=== PATIENT | male | born 1960 | race Caucasian/White ===

== ENCOUNTER 2020-06-07 14:15 | Outpatient (REF) | payer MEDICARE, SELFPAY ==
[2020-06-07 16:39] LABS: PSA,Total (Free>4and<10) 5.63 ng/mL (0.00-4.00)
[2020-06-11 11:37] LABS: Free Prostate Spec Ag 1.1 ng/mL; Percent Free Prostate Spec Ag 25 % (calc) (>25); Prostate Specific Ag Total 4.4 ng/mL (< OR = 4.0)
== END 2020-06-07 14:16 | disposition home or self-care (01) ==
LOC: HO.LAB 14:15
PROVIDERS: PCP Internal Medicine; Visit Provider Internal Medicine
DX: Z12.5 Encounter for screening for malignant neoplasm of prostate (principal)
CPT/HCPCS: 84153; 84154

== ENCOUNTER 2025-02-27 15:15 | Outpatient (AMB) | payer MEDICARE, SELFPAY ==
--- OUTSIDE RECORDS SUMMARY | 2024-11-16 12:15 | XMS_ITS ---
Author Organization [facility] Address [address], [place] [id number] Care Team Providers Care Truck Body Builder Apprentice Name Role Phone MIRNA HIGGINS Primary Care Provider [phone] LUCRETIA WOLFE Unavailable [phone] ALLERGIES No Known Allergies REASON FOR VISIT [...] 11/16/2024 Encounters Encounter Location Date Provider Diagnosis [facility] [address] [place] [address] 11/16/2024 LUCRETIA WOLFE Chronic pain syndrome G89.4 [...] to continue on pain management with methadone. 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 His methadone has been [...] to continue on pain management with methadone. 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 His methadone has been [...]
--- OUTSIDE RECORDS SUMMARY | 2024-11-20 04:30 | XMS_ITS ---
Author Organization [facility] Address [address] [place], [place] [id number] Care Team Providers Care Auto Garage Attendant Name Role Phone MIRNA HIGGINS Primary Care Provider LUCRETIA WOLFE [phone] REASON FOR VISIT canceled appt Encounters Encounter Location Date Provider Diagnosis [facility] [address] [place] [address] 11/20/2024 LUCRETIA WOLFE PLAN OF TREATMENT No Information
--- OUTSIDE RECORDS SUMMARY | 2024-11-24 11:45 | XMS_ITS ---
Author Organization [facility] Address [address], [place] [id number] Care Team Providers Care Engraver Machine Name Role Phone MIRNA HIGGINS Primary Care Provider [phone] LUCRETIA WOLFE [phone] REASON FOR VISIT 40 SFU 1 wk f/u Encounters Encounter Location Date Provider Diagnosis [facility] [address] [place] [facility] [place] [address] 11/24/2024 LUCRETIA WOLFE PLAN OF TREATMENT No Information
--- NOTE | 2025-02-27 15:21 | A.OFFPC_ITS ---
Vital Signs 02/27/25 15:27 Height 6 ft 3.2 in Weight 268 lb BMI 33.3 BP 154/83 H Respiration 16 Pulse 108 H Pulse Source Pulse Oximeter Temp 98.1 F Temp Source Temporal Artery Scan Pulse Oximetry (%) 95 Oxygen Delivery Method Room Air Intake Visit Reasons: Establish Care - see comments Home Manager Required: No Accompanied by: Self / Same As Patient Allergies No Known Allergies Allergy (Verified 02/27/25 15:22) Tobacco use date assessed: 02/27/25 Fall risk assessment: 1 Fall in past year Last assessed Fall Risk: 02/27/25 Dental Screening Dental Screen Date: 02/27/25 Did you have a dental visit in the last 12 months?: Yes Did you have a dental problem in the last 6 months where you did not have access to dental care?: No Was dental information given to patient?: Patient has dentist [facility] Medical History (Updated 03/02/25 @ 08:26 by Yonny Oviedo MD) Opioid use disorder Family History (Updated 02/27/25 @ 15:33 by SAMIA Wells) Father Leukemia Mother Smoker Social History (Updated 02/27/25 @ 15:23 by SAMIA Wells) Housing: House Alcohol intake: current Alcohol intake frequency: does not drink Patient Tobacco Use Status: Never used Tobacco service: No Current occupational status: retired Cognitive needs: No Hearing needs: No Vision needs: Yes (reading glasses) Questionnaire PHQ-9 Over the last 2 weeks, how often have you been bothered by any of the following problems? 1. Little interest or pleasure in doing things: not at all 2. Feeling down, depressed, or hopeless: not at all 3. Trouble falling or staying asleep, or sleeping too much: not at all 4. Feeling tired or having little energy: not at all 5. Poor appetite or overeating: not at all 6. Feeling bad about yourself - or that you are a failure or have let yourself or your family down: not at all 7. Trouble concentrating on things, such as reading the newspaper or watching television: not at all 8. Moving or speaking so slowly that other people could have noticed. Or the opposite - being so fidgety or restless that you have been moving around a lot more than usual: not at all 9. Thoughts that you would be better off or of hurting yourself in some way: not at all Total score: 0 Source: Developed by Drs. Palomo Alba, Raul Sol and colleagues, with an educational parisa from [employer]. Thrive Questionnaire Date Thrive assessed: 02/27/25 I am a: Patient What is your living situation today?: I have a steady place to live Within the past 12 months, did the food you bought not last and you didn't have the money to get more?: Never true Within the past 12 months, did you worry whether your food would run out before you got money to buy more?: Never true Do you have trouble paying for medicines?: No Do you have trouble getting transportation to medical appointments?: No Do you have trouble paying your heating and electricity bill?: No Do you have trouble taking care of your child, family member or friend?: No Do you have trouble with day-to-day activities such as bathing, preparing meals, shopping, managing finances, etc.?: No Are you currently unemployed and looking for a job?: No Are you interested in more education?: No Please select the resources that you would like help with: None THRIVE Score: 0 AUDIT C Alcohol Use Questionnaire (AUDIT-C) 1. How often do you have a drink containing alcohol?: Never 3. How often do you have six or more drinks on one occasion?: Never Total Score: 0 BELA-7 AMB Questionnaire BELA-7 Date BELA - 7 assessed: 02/27/25 Feeling nervous, anxious, or on edge: 0 = Not at all Not being able to stop or control worryin = Not at all Worrying too much about different things: 0 = Not at all Trouble relaxin = Not at all Being so restless that it is hard to sit still: 0 = Not at all Becoming easily annoyed or irritable: 0 = Not at all Feeling afraid as if something awful might happen: 0 = Not at all Total BELA-7 score (0-4 normal; 5-9 mild; 10-14 moderate; 15-21 severe): 0 Source: Developed by Francesca Aguillon Kurt Kroenke and colleagues, with an educational parisa from [employer]. Physical exam (Primary Care) Vital Signs: Last Vital Signs Temp 98.1 F 02/27/25 15:27 Pulse 108 H 02/27/25 15:27 Resp 16 02/27/25 15:27 BP 154/83 H 02/27/25 15:27 Pulse Ox 95 02/27/25 15:27 Oxygen Delivery Method Room Air 02/27/25 15:27 BMI result Body Mass Index 33.3 Tobacco/Smoking Status: Tobacco use Status Tobacco use date assessed 02/27/25 02/27/25 15:34 Patient Tobacco Use Status Never used Tobacco 02/27/25 15:34 PHQ-9: PHQ-9 Score PHQ-9: Total score 0 02/27/25 15:34 Thrive Assessment: Date of Thrive Assessment Date Thrive assessed 02/27/25 02/27/25 15:34 Coding Level of Care Code New Pt Level 4 (90952) Complex EM visit Add On G2211 Diagnoses Opioid use disorder F11.90 Assessment & Plan Assessment & Plan (1) Opioid use disorder: Code(s): F11.90 - Opioid use, unspecified, uncomplicated Category: Medical Plan: History of Present Illness - The patient is a 65-year-old male presenting with opioid dependence and pain management concerns. - Migraine: The patient has experienced migraines since age 11, initially diagnosed at [facility] in [place] without treatment options provided. - Chest pain: The patient reported experiencing severe chest pain at work, leading to hospitalization and an ICU stay where an inverted T wave was noted. - Back pain: The patient has had back pain since his 20s, worsening in his 40s, leading to methadone prescription for pain management. - Opioid dependence: The patient has been on methadone, initially at 60 mg/day, now reduced to 30 mg/day, and is concerned about managing pain without opioids. - The patient has a history of being prescribed Tylox and hydrocodone for pain management and has been advised to transition to Suboxone. 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 - Family status: The patient is responsible for caring for his 90-year-old father who has leukemia. - Functional status: The patient rarely goes out and is a perfectionist, which affects his social interactions. 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 Review of Systems - Neurological: Reports migraines since age 11. - Cardiovascular: Reports severe chest pain at work, denies current chest pain. - Musculoskeletal: Reports chronic back pain since his 20s, worsening in his 40s. Physical Exam General: Cooperative and healthy appearing Nutritional Appearance: Well nourished Orientation/consciousness: Patient oriented x3 Limitations: No limitations Head: Normal to inspection General: Appearance normal, both eyes and all related structures Neck: Normal visual inspection Chest: Normal palpation of entire chest wall Respiratory: Patient reports experiencing very bad chest pain at work, previously thought to be a heart attack. History of inverted T wave noted. ormal respiratory effort Neurology: Patient oriented x3. Reports history of migraines since age 11, with no treatment. Describes headaches as debilitating, impacting ability to work. Reports being a perfectionist and experiencing rumination and self-doubt. Results Plan 1. Opioid Dependence - The patient is advised to transition from methadone to Suboxone for opioid dependence management. - The Aleida method was discussed as a potential tapering strategy to avoid withdrawal symptoms. - Referral to a specialist familiar with the Aleida method was recommended for a gradual transition. Discussion Notes During the consultation, we discussed transitioning the patient from methadone to Suboxone to manage opioid dependence. The Aleida method was introduced as a tapering strategy to minimize withdrawal symptoms, and a referral to a specialist was recommended. The patient expressed concerns about withdrawal and was reassured that the transition would be managed carefully. Patient Instructions - Follow up with the referred specialist to discuss the Aleida method for transitioning to Suboxone. - Monitor for any withdrawal symptoms and report them to the healthcare provider. - Continue current medication regimen until the specialist appointment. Orders: Referrals Addiction Medicine Referral F11.90 - Opioid use, unspecified, uncomplicated
[2025-02-27 15:27] VITALS: BP 154/83; PULSE 108; RESP 16; TEMP 36.7; O2SAT 95; BMI 33.3
--- OUTSIDE RECORDS SUMMARY | 2025-02-27 16:10 | XMS_ITS | Patient Health Record ---
Author Organization [facility] Address [address], [place] [id number] Care Team Providers Care Landscape Architecture Teacher Name Role Phone MIRNA HIGGINS Primary Care Provider LUCRETIA WOLFE Unavailable [phone] ALLERGIES No Known Allergies REASON FOR REFERRAL No Information MEDICATIONS Medication SIG (Take, Route, Frequency, Duration) Notes Start Date End Date Status cloNIDine HCl 0.1 MG 1-2 tablet Orally q6h prn for 2 days 11/16/2024 Active diazePAM 10 MG 1 tablet as [...] MG 1 Orally Twice a day Active SOCIAL HISTORY Tobacco Use: Social History Observation Description Date Details (start date - stop date) Never Smoker NA - NA Sex Assigned At : Social History Observation Description Sex Assigned At Unknown Smoking Question Answer Notes Are you a: never smoker Section Notes: never smoked cigarettes never smoked cigarettes never smoked cigarettes PROBLEMS Problem Type ICD Code Onset Dates Problem Status W/U Status Risk SNOMED Code Notes Problem Chronic pain syndrome (G89.4) Active confirmed 156931368 Problem BMI 36.0-36.9,adult (Z68.36) Active confirmed 134859487 Problem High cholesterol (E78.00) Active confirmed 13656203 Problem BPH without urinary obstruction (N40.0) Active confirmed 214130146 Problem Migraine syndrome (G43.909) Active confirmed 59687246 VITAL SIGNS Blood pressure diastolic 80 mm Hg 11/16/2024 Height 73.25 in 11/16/2024 Blood pressure systolic 138 mm Hg 11/16/2024 Weight 282.6 lbs 11/16/2024 BMI 37.03 kg/m2 11/16/2024 Encounters Encounter Location Date Provider Diagnosis [address] [address] 06/12/2024 MIRNA HIGGINS [address] [address] 08/22/2024 MIRNA HIGGINS Elevated PSA R97.20 ; BPH without urinary obstruction N40.0 ; Chronic pain syndrome G89.4 ; Chronic depression F32.A ; BMI 36.0-36.9,adult Z68.36 ; High cholesterol E78.00 and Migraine syndrome G43.[address] [address] 08/22/2024 MIRNA HIGGINS [place] [phone] 08/23/2024 LUCRETIA WOLFE Chronic pain syndrom e G89.[address] [address] 11/16/2024 MIRNA HIGGINS [place] [phone] 11/16/2024 LUCRETIA WOLFE [place] [phone] 11/16/2024 LUCRETIA WOLFE Chronic pain syndrom e G89.[address] [address] 11/20/2024 LUCRETIA WOLFE [address] [address] 11/24/2024 LUCRETIA WOLFE ASSESSMENTS Encounter Date Diagnosis Assessment Notes Treatment Notes Treatment Clinical Notes Section Notes 08/22/2024 Elevated PSA (ICD-10 - R97.20) pt to obtain records for review 08/22/2024 BPH without urinary obstruction (ICD-10 - N40.0) good control 08/23/2024 Chronic pain syndrome (ICD-10 - G89.4) [...] is tenuous. He admits to taking illicit [place] opiates > 20 years ago and using [...] to his Suboxone induction appointment when scheduled. 11/16/2024 Chronic pain syndrome (ICD-10 - G89.4) [...] to continue on pain management with methadone. [employer] record was searched. His methadone has been cut from 50 mg daily to 30 mg for the last month. It is not completely clear to me what he is taking, but that was his prescription. He continues on diazepam, 30 mg/day but is no longer getting any prescriptions for amphetamines. Plan is an induction on buprenorphine from Vicodin/hydrocodone . He will have clonidine to help with withdrawal symptoms for the 36 hours prior to initial buprenorphine dose. He will bring his medications to his office visit where I will provide all instructions personally and we will proceed with induction. UDS is positive for methadone, THC, benzodiazepi jose. It is negative for the remainder of the 12 test panel. 08/22/2024 Chronic pain syndrome (ICD-10 - G89.4) pt aware that I do not prescribe long term care social worker pain med/benzodiazepines -pt will see Dr Wolfe 08/22/2024 Chronic depression (ICD-10 - F32.A) no acute sx; pt to get me a lsit of psychiatrists that he can see 08/22/2024 BMI 36.0-36.9,adult (ICD-10 - Z68.36) pt to exercise and modify diet to decrease weight 08/22/2024 High cholesterol (ICD-10 - E78.00) low fat/cholesterol diet reviewed 08/22/2024 Migraine syndrome (ICD-10 - G43.909) stable 08/23/2024 Other 50' F2F encount er for discussion, education, care plan, record and RE[employer] review PLAN OF TREATMENT No Information Insurance Providers Payer Name Payer Address Payer Phone Subscriber Number Group Number Insured Name Patient Relationship to Insured Coverage Start Date Coverage End Date [employer]IC[employer] [address] [facility] [place] [address] [phone] [id number] PRIYANKA ALLISON Self - patient is the insured [facility] [address] [place] [address] [phone] [id number] PRIYANKA ALLISON Self - patient is the insured MEDICAL (GENERAL) HISTORY Medical History History ICD Code osteoarthritis high cholesterol depression headaches/migraines chronic lower back pain-spinal stenosis/ DDD agoraphobia BPH elevated psa Surgical History Surgery Date(Month/Year) prostate bx
== END 2025-02-27 16:10 | disposition home or self-care (01) ==
LOC: HO.HMCSH 15:15
PROVIDERS: PCP Internal Medicine; Visit Provider Internal Medicine
DX: F11.90 Opioid use, unspecified, uncomplicated (principal)

== ENCOUNTER → 2025-02-27 15:15 | Outpatient (BNVA) | payer MEDICARE, SELFPAY | PROVIDERS: PCP Internal Medicine; Visit Provider Internal Medicine | DX: Z76.89 Persons encountering health services in other specified circumstances (principal); G43.909 Migraine, unspecified, not intractable, without status migrainosus; F11.90 Opioid use, unspecified, uncomplicated | CPT/HCPCS: 99202 ==

== ENCOUNTER 2025-03-19 13:55 | Outpatient (AMB) | payer MEDICARE, SELFPAY ==
--- OUTSIDE RECORDS SUMMARY | 2024-11-16 04:04 | XMS_ITS ---
Author Organization [facility] Address [address], [place] [phone] Care Team Providers Care Information Technology Specialist Name Role Phone MIRNA HIGGINS Primary Care Provider Encounters Encounter Location Date Provider Diagnosis [facility] [address] [place] [address] 11/16/2024 MIRNA HIGGINS PLAN OF TREATMENT No Information
--- OUTSIDE RECORDS SUMMARY | 2024-11-16 04:11 | XMS_ITS ---
Author Organization [facility] Address [address] [place], [place] [phone] Care Team Providers Care Health Advocate Name Role Phone MIRNA HIGGINS Primary Care Provider LUCRETIA WOLFE [phone] REASON FOR VISIT appt to discuss suboxone Encounters Encounter Location Date Provider Diagnosis [facility] [address] [place] [address] 11/16/2024 LUCRETIA WOLFE PLAN OF TREATMENT No Information
--- OUTSIDE RECORDS SUMMARY | 2024-11-16 12:15 | XMS_ITS ---
Author Organization [facility] Address [address], [place] [id number] Care Team Providers Care Tobacco Hanger Name Role Phone MIRNA HIGGINS Primary Care Provider [phone] LUCRETIA WOLFE Unavailable [phone] ALLERGIES No Known Allergies REASON FOR VISIT [...] 11/16/2024 Encounters Encounter Location Date Provider Diagnosis [facility] [address] [place] [address] 11/16/2024 LUCRETIA WOLFE Chronic pain syndrome G89.4 [...] to continue on pain management with methadone. FOREST RESOURCES PROFESSOR record was searched. His methadone has been [...] to continue on pain management with methadone. FOREST RESOURCES PROFESSOR record was searched. His methadone has been [...]
--- OUTSIDE RECORDS SUMMARY | 2024-11-20 04:30 | XMS_ITS ---
Author Organization [facility] Address [address] [place], [place] [id number] Care Team Providers Care Range Management Specialist Name Role Phone MIRNA HIGGINS Primary Care Provider [phone] LUCRETIA WOLFE [phone] REASON FOR VISIT canceled appt Encounters Encounter Location Date Provider Diagnosis [facility] [address] [place] [address] 11/20/2024 LUCRETIA WOLFE PLAN OF TREATMENT No Information
--- OUTSIDE RECORDS SUMMARY | 2024-11-24 11:45 | XMS_ITS ---
Author Organization [facility] Address [address] [place], [place] [id number] Care Team Providers Care Linux Network Systems Administrator Name Role Phone MIRNA HIGGINS Primary Care Provider LUCRETIA WOLFE [phone] REASON FOR VISIT 40 SFU 1 wk f/u Encounters Encounter Location Date Provider Diagnosis [facility] [address] [place] [facility] [place] [address] 11/24/2024 LUCRETIA WOLFE PLAN OF TREATMENT No Information
--- NOTE | 2025-03-19 14:09 | A.OFFVIS_ITS ---
Vital Signs 03/19/25 14:22 Height 6 ft 4 in Weight 274 lb BMI 33.3 Pulse 122 H Pulse Source Pulse Oximeter Pulse Oximetry (%) 99 Oxygen Delivery Method Room Air Intake Visit Reasons: MAT intake Allergies No Known Allergies Allergy (Verified 03/19/25 14:23) HPI Comments Details: Patient was informed and verbally consented to the use of an ambient scribe for clinic note documentation during this visit. Patient was informed and verbally consented to the use of an ambient scribe for clinic note documentation during this visit History of Present Illness The patient is a 65-year-old male presenting with a history of opioid use disorder. The patient has been taking narcotics since the age of 12, originally prescribed for migraines. Currently, he reports using 15 mg of methadone and 5 m g of Vicodin yesterday and has taken 5 mg of methadone in the morning and plans on another 5 mg at night along with 5 mg of Vicodin today. He expresses a desire to taper off these opioids, recognizing the challenge due to potential withdrawal symptoms and cravings. He acknowledges stress and inability to fulfill personal duties when attempting to reduce dosage. He states narcotics were mainly prescribed by Dr. Lema, and his last prescription pickup was on December 29, which included hydrocodone/acetaminophen 10/325, as well as diazepam. Despite past unsuccessful attempts to discontinue opioids, where he experienced withdrawal symptoms lasting 3-4 days, he has been managing these without inpatient detoxification. The patient denies intravenous drug use and has no history of being in rehabilitation or support groups such as AA or NA. The patient reports his social scenario as living with his father and having a support system through him. He denies any episodes of domestic violence and con firms he has no children. 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 He denies the use of tobacco and reports abstaining from alcohol for many years. His medical history includes benign prostatic hyperplasia treated with tamsulosin, hypercholesterolemia managed with simvastatin, and past diagnosis of major depressive disorder. Behavioral health review indicates no current mental health provider and refutal of a previous bipolar diagnosis due to the absence of madeleine. No self-harmful intentions, suicidal ideation, or homicidal thoughts have been reported. On social review, he denotes his main mode of transportation is a car, and he is residing at home without legal issues encountered, including no history of incarceration or parole. Review of Systems - General: Denies fever. - Neurological: Reports chronic headaches. - Psychiatric: Reports major depressive disorder; denies gambling or excessive behaviors. - Respiratory: Denies cough or difficulty breathing. - Cardiovascular: Denies chest pain. - Gastrointestinal: Denies abdominal pain. - Musculoskeletal: Reports chronic back pain and sciatica. - Integumentary: Denies skin issues. - Substance Use: Reports use of opioids, denies alcohol use for several years. Physical Exam - Vital Signs- Stable. - HEENT- Pupils normal in size. - Respiratory- Lungs clear. - Cardiovascular- Regular heart rate and rhythm. - Gastrointestinal- Abdomen soft, non-tender. - Musculoskeletal- Extremities not tender. - Neurological- Non-focal exam. - Skin- Clear. Results Plan Patient was informed and verbally consented to the use of an ambient scribe for clinic note documentation during this visit. 1. Opioid use, unspecified, uncomplicated F11.90 Opioid dependency is addressed with planned initiation of Suboxone 8/2 TID, focusing on withdrawal and pain reduction. Patient advised induction during mild withdrawal, monitored within the initial days post-dose tapering. Additional psychiatric and supportive counseling endorsement encourages holistic management. 2. Benign prostatic hyperplasia with lower urinary tract symptoms N40.1 Continue current medication regimen with tamsulosin as no emergent concerns presented. 3. Pure hypercholesterolemia, unspecified E78.00 Maintain simvastatin therapy. Routine evaluation suffices with currently stable parameters. 4. Major depressive disorder, single episode, unspecified F32.9 Engage psychiatric consultation for support during opioid transition, ensuring integrated care amid depressive disorders. 5. Other chronic pain G89.29 Anticipate Suboxone utility also encompassing chronic back pain management. No alternate analgesics were considered at this stage. Discussion Notes During our discussion, I introduced the therapeutic opportunity with Suboxone to alleviate opioid addiction and possibly manage chronic pain. Substantial details on its use, benefits, and requirement for a mild withdrawal state before initiation were described. I advocated obtaining a psychiatric evaluation concerning diazepam usage, recommending coordinated care endeavors in psychological support. Patient?s commitment to comprehending the intervention and supplementary educational resources via AI was acknowledged. Emphasizing truths about withdrawal severity and adherence to this management provides a realistic outlook for follow-up consideration. Medical Decision Making The principal decision revolved around addressing the ongoing rehman with opioid use disorder. Based on patient history and symptoms described, Suboxone emerges as a suitable analog, promoting multifaceted relief in ongoing opioid dependency and attendant chronic pain conditions. Current medications for BPH and hypercholesterolemia persist without recommended modifications. Psychiatry referrals were deemed necessary as a complete approach to addressing the significant presence of major depressive disorder in conjunction with narcotics discontinuation. Patient Instructions - Begin Suboxone treatment as per outlined plan in mild withdrawal. - Identify and contact a mental health professional for depression management. - Continue current BPH and hypercholesterolemia medication regime. - Return for follow-up when necessary or if side effects arise. - Seek immediate care if severe withdrawal or unexpected symptoms are experienced. [facility] Medical History Opioid use disorder Family History Father Leukemia Mother Smoker Social History Housing: House Alcohol intake: current Alcohol intake frequency: does not drink Patient Tobacco Use Status: Never used Tobacco service: No Current occupational status: retired Cognitive needs: No Hearing needs: No Vision needs: Yes (reading glasses) Review of Systems Const All systems reviewed & are unremarkable except as noted in HPI and below Physical Exam Vital Signs: Last Vital Signs Pulse 122 H 03/19/25 14:22 Pulse Ox 99 03/19/25 14:22 Oxygen Delivery Method Room Air 03/19/25 14:22 BMI result Body Mass Index 33.3 Const General: cooperative Eyes General: appearance normal, both eyes and all related structures Resp Effort & Inspection: normal respiratory effort Cardio Rate: regular rate GI Inspection: Yes normal to inspection Extrem General: Yes normal to inspection Assessment & Plan Assessment & Plan (1) Opioid use disorder: Comment: He is good candidate for Suboxone Code(s): F11.90 - Opioid use, unspecified, uncomplicated Category: Medical Plan Come in when ready and prescribe . 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 What is your current relationship status?: single Current PCP: Preet Date of last visit: this year Referral Source: PCP Substance Abuse History Substance Abuse History (includes route, frequency and quantity): Methadone (15 mg a day ), Other opioids (hydrocodone 5 mg a day) and Other (gabapentin didnt work) Age of first use: 12 Details: headaches as child Social History Domestic Violence concerns: none Children: no Do you have a support system?: father Current mode of transportation?: car Where are you currently residing?: home [place] [facility] Drug Use Have you ever shared needles?: No Have you ever belonged to a needle exchange program?: No Do you buy needles at a pharmacy?: No Have you ever overdosed?: No Have you ever been hospitalized for an overdose?: No Recovery History Have you had any periods of recovery?: No Have you ever had inpatient treatment for your substance abuse disorder?: No Have you been in an inpatient detoxification program?: No Have you been in an inpatient Rehab/Intermediate house?: No Have you been in an outpatient Methadone Maintenance program?: No (has been prescribed in past,still has and is taking) Have you been in an outpatient Suboxone Maintenance program?: No Have you been in an AA/NA support program?: No Have you had a Recovery Support Fuel Tank Sealer And Tester?: No Have you had Peer Support?: No Behavioral Health History Do you have a current provider? If so, who?: no diagnosis: Depression and anxiety History of other addictive behavior: none History of inpatient psychiatric hospitalization? If so, how many? Most Recent? Where?: none History of self harming thoughts?: No History of homicidal or suicidal intentions?: No Medical Conditions Endocarditis?: No Skin Infection: No Seizure related to withdrawal or overdose: No Head or brain injury: No Hepatitis A (if yes, have you been treated?): No Hepatitis B (if yes, have you been treated?): No Hepatitis C (if yes, have you been treated?): No HIV (if yes, have you been treated?): No TB (if yes, have you been treated?): No Do you have any chronic pain conditions?: yes,back pain Legal History History of incarceration: No Currently on parole or probation: No Court mandated programs: No Pending court cases: No DCF involvement: No
[2025-03-19 14:22] VITALS: PULSE 122; O2SAT 99; BMI 33.3
--- OUTSIDE RECORDS SUMMARY | 2025-03-19 19:18 | XMS_ITS | Patient Health Record ---
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 Name Role Phone MIRNA HIGGINS Primary Care Provider LUCRETIA WOLFE Unavailable [phone] ALLERGIES No Known Allergies REASON FOR REFERRAL [...] Problem Chronic pain syndrome (G89.4) Active confirmed 130602806 Problem BMI 36.0-36.9,adult (Z68.36) Active confirmed 244780623 Problem High cholesterol (E78.00) Active confirmed 02492355 Problem BPH without urinary obstruction (N40.0) Active confirmed 930724059 Problem Migraine syndrome (G43.909) Active confirmed 94493911 VITAL SIGNS Blood pressure diastolic 80 mm Hg 11/16/2024 Height 73.25 in 11/16/2024 Blood pressure systolic 138 mm Hg 11/16/2024 Weight 282.6 lbs 11/16/2024 BMI 37.03 kg/m2 11/16/2024 Encounters Encounter Location Date Provider Diagnosis [address] [address] 06/12/2024 MIRNA HIGGINS [address] [address] 08/22/2024 MIRNA HIGGINS Elevated PSA R97.20 ; BPH without urinary obstruction N40.0 ; Chronic pain syndrome G89.4 ; Chronic depression F32.A ; BMI 36.0-36.9,adult Z68.36 ; High cholesterol E78.00 and Migraine syndrome G43.[address] [address] 08/22/2024 MIRNA HIGGINS [place] [phone] 08/23/2024 LUCRETIA WOLFE Chronic pain syndrom e G89.[address] [address] 11/16/2024 MIRNA HIGGINS [place] [phone] 11/16/2024 LUCRETIA WOLFE [place] [phone] 11/16/2024 LUCRETIA WOLFE Chronic pain syndrom e G89.[address] [address] 11/20/2024 LUCRETIA WOLFE [address] [address] 11/24/2024 LUCRETIA WOLFE ASSESSMENTS Encounter Date Diagnosis [...] is tenuous. He admits to taking illicit Qatari opiates > 20 years ago and using [...] to continue on pain management with methadone. 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 His methadone has been [...] pt aware that I do not prescribe intermediate card tender pain med/benzodiazepines -pt will see Dr Wolfe [...] for discussion, education, care plan, record and SENIOR DESIGNER review PLAN OF TREATMENT No Information Insurance Providers Payer Name Payer Address Payer Phone Subscriber Number Group Number Insured Name Patient Relationship to Insured Coverage Start Date Coverage End Date [employer] [address] [place] [address] [phone] [id number] PRIYANKA ALLISON Self - patient is the insured [facility] [address] [place] [address] [phone] [id number] PRIYANKA ALLISON Self - patient is the insured MEDICAL (GENERAL) HISTORY Medical History History ICD Code osteoarthritis high cholesterol depression headaches/migraines chronic lower back pain-spinal stenosis/ DDD agoraphobia BPH elevated psa Surgical History Surgery Date(Month/Year) prostate bx
== END 2025-03-19 15:15 | disposition home or self-care (01) ==
LOC: HO.HCC 13:55
PROVIDERS: PCP Internal Medicine; Visit Provider Internal Medicine
DX: F11.90 Opioid use, unspecified, uncomplicated (principal)
CPT/HCPCS: 99204

== ENCOUNTER → 2025-03-19 13:55 | Outpatient (BNVA) | payer MEDICARE, SELFPAY | PROVIDERS: PCP Internal Medicine; Visit Provider Internal Medicine | DX: N40.1 Benign prostatic hyperplasia with lower urinary tract symptoms (principal); F11.90 Opioid use, unspecified, uncomplicated; E78.00 Pure hypercholesterolemia, unspecified; F32.9 Major depressive disorder, single episode, unspecified; G89.29 Other chronic pain | CPT/HCPCS: 99202 ==

== ENCOUNTER 2025-05-29 15:10 | Outpatient (AMB) | payer MEDICARE, SELFPAY ==
--- OUTSIDE RECORDS SUMMARY | 2024-06-12 06:23 | XMS_ITS ---
Author Organization [facility] Address [address], [place] [id number] Care Team Providers Care Electric Fork Operator Name Role Phone MIRNA HIGGINS Primary Care Provider REASON FOR VISIT scheduled NPT appt. Encounters Encounter Location Date Provider Diagnosis [facility] [address] [place] [address] 06/12/2024 MIRNA HIGGINS PLAN OF TREATMENT No Information
--- OUTSIDE RECORDS SUMMARY | 2024-08-22 05:15 | XMS_ITS ---
Author Organization [facility] Address [address], [place] [id number] Care Team Providers Care Piercing Mill Operator Name Role Phone MIRNA HIGGINS Primary Care Provider [phone] ALLERGIES No Known Allergies REASON FOR VISIT 28/NPT, no sx, exposure, testing MEDICATIONS Medication SIG (Take, Route, Frequency, Duration) Notes Start Date End Date Status HYDROcodone-Acetaminophen 10-325 MG 1 tablet as needed Orally twice a day Active diazePAM 10 MG 1 tablet as needed O rally Three times a day Active Tamsulosin HCl 0.4 MG 1 Orally Twice a day Active Naproxen 500 MG 1 tablet with food o r milk as needed Orally every 12 hrs Active Rosuvastatin Calcium 40 MG 1 tablet Oral ly Once a day Active Methadone HCl 10 MG 5 tablet Orally Once a day Active PROBLEMS Problem Type ICD Code Onset Dates Problem Status W/U Status Risk SNOMED Code Notes Problem BPH without urinary obstruction (N40.0) Active confirmed 775980090 Problem Chronic pain syndrome (G89.4) Active confirmed 535809354 Problem BMI 36.0-36.9,adult (Z68.36) Active confirmed 596917122 Problem High cholesterol (E78.00) Active confirmed 18826079 Problem Migraine syndrome (G43.909) Active confirmed 77406093 VITAL SIGNS Height 73.25 in 08/22/2024 Weight 275.2 lbs 08/22/2024 Blood pressure systolic 124 mm Hg 08/22/19 25 Blood pressure diastolic 70 mm Hg 025 BMI 36.06 kg/m2 08/22/2024 Encounters Encounter Location Date Provider Diagnosis [facility] [address] [place] [address] 08/22/2024 MIRNA RO Elevated PSA R97.20 ; BPH without urinary obstruction N40.0 ; Chronic pain syndrome G89.4 ; Chronic depression F32.A ; BMI 36.0-36.9,adult Z68.36 ; High cholesterol E78.00 and Migraine syndrome G43.909 ASSESSMENTS Encounter Date Diagnosis Assessment Notes Treatment Notes Treatment Clinical Notes Section Notes 08/22/2024 Elevated PSA (ICD-10 - R97.20) pt to obtain records for review 08/22/2024 BPH without urinary obstruction (ICD-10 - N40.0) good control 08/22/2024 Chronic pain syndrome (ICD-10 - G89.4) pt aware that I do not prescribe group home pain med/benzodiazepin es-pt will see Dr Maguire 08/22/2024 Chronic depression (ICD-10 - F32.A) no acute sx; pt to get me a lsit of psychiatrists that he can see 08/22/2024 BMI 36.0-36.9,adult (ICD-10 - Z68.36) pt to exercise and modify diet to decrease weight 08/22/2024 High cholesterol (ICD-10 - E78.00) low fat/cholesterol diet reviewed 08/22/2024 Migraine syndrome (ICD-10 - G43.909) stable PLAN OF TREATMENT Treatment Notes Assessment Notes Elevated PSA pt to obtain records for review BPH without urinary obstruction good con trol Chronic pain syndrome pt aware that 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 Pt used to see Dr Lema. Pt has been on pain medication regimen x 40 years for chronic back pain/MCCALL. Pt is intersted in seeing a pain warhead maintenance specialist to try suboxone. Pt has no SI/HI/brandt Physical Examination Category Sub-Category Detail Notes Section Note s HEENT Head: normocephalic, atraumatic EOM: intact NECK Neck: supple, normal ROM, no lymph adenopathy EXTREMITIES Edema: none Cyanosis: none Pulses: 2+ bilateral Clubbing: none BACK Spine: no tenderness to palpation CVA tenderness: none CHEST Breath sounds: clear to auscultation Rales: none Wheezes: none HEART Rhythm: regular Murmurs: none Heart sounds: normal S1 & S2, no S 3/S4 Rate: regular ABDOMEN Shape: normal, nondistended Guarding: no Tenderness: none Masses: none Liver, Spleen: not enlarged Sounds: normal, active Rebound tenderness: none NEUROLOGICAL Mental status: alert and oriented to pers on, place and time GENERAL General Appearance: well nourish ed, no apparent distress, well developed PSYCHOLOGY Grooming: appropriate Eye contact: normal Mood: pleasant Affect appropriate
--- OUTSIDE RECORDS SUMMARY | 2024-08-22 05:55 | XMS_ITS ---
Author Organization [facility] Address [address], [place] [phone] Care Team Providers Care Exterminator Helper Name Role Phone MIRNA HIGGINS Primary Care Provider REASON FOR VISIT Suboxone appt Encounters Encounter Location Date Provider Diagnosis [facility] [address] [place] [address] 08/22/2024 MIRNA HIGGINS PLAN OF TREATMENT No Information
--- OUTSIDE RECORDS SUMMARY | 2024-08-23 11:00 | XMS_ITS ---
Author Organization [facility] Address [address] [place], [place] [phone] Care Team Providers Care Air Quality Manager Name Role Phone MIRNA HIGGINS Primary Care Provider LUCRETIA WOLFE Unavailable [phone] ALLERGIES No Known Allergies REASON FOR VISIT [facility] Npt MEDICATIONS Medication SIG (Take, Route, Frequency, Duration) Notes Start Date End Date Status Rosuvastatin Calcium 40 MG 1 tablet Oral ly Once a day Active Naproxen 500 MG 1 tablet with food o r milk as needed Orally every 12 hrs Active Tamsulosin HCl 0.4 MG 1 Orally Twice a day Active diazePAM 10 MG 1 tablet as needed O rally Three times a day Active HYDROcodone-Acetaminophen 10-325 MG 1 tablet as needed Orally twice a day Active Methadone HCl 10 MG 5 tablet Orally Once a day Active VITAL SIGNS Height 73.25 in 08/23/2024 Weight 271.2 lbs 08/23/2024 Blood pressure systolic 138 mm Hg 08/23/19 25 Blood pressure diastolic 84 mm Hg 025 BMI 35.53 kg/m2 08/23/2024 Encounters Encounter Location Date Provider Diagnosis [facility] [address] [place] [address] 08/23/2024 LUCRETIA WOLFE Chronic pain syndrome G89.4 ASSESSMENTS Encounter Date Diagnosis Assessment Notes Treatment Notes Treatment Clinical Notes Section Notes 08/23/2024 Chronic pain syndrome (ICD-10 - G89.4) He has been treated for pain since he was a teen. He started getting care for daily migraines and was referred to a pain clinic. He was treated with oxygen, then tylox. He has been on methadone for 20 years - 1 tab 5 separate doses. + Vicodin 2 separate doses/day. He has chronic pain, but is able to function well with present pain management. He is now looking for Suboxone since he has not been able to find an opiate prescriber to replace his retiring PCP. He understands that if he stops taking his prescribed opiates, that he will go through a prolonged opiate withdrawal. He did that many years ago and found it very unpleasant. He is certainly correct about that. But there are several issues: Suboxone is approved for maintenance treatment of opiate use disorder. His OUD diagnosis is tenuous. He admits to taking illicit Syrian opiates > 20 years ago and using cocaine > 40 years ago. Other than that, he has only taken medications as prescribed. Of the 11 DSM-5 criteria for the diagnosis of opiate use disorder, he satisfies only the tolerance and withdrawal criteria. And, according to DSM-5, those do not count if they are a result of prescribed opiates taken as directed. Without satisfying at least 2 criteria, he does not qualify for diagnosis of opiate use disorder. Any treatment with Suboxone will be off label. But that can still be done if clinically indicated. He understands that Suboxone does not treat pain well. But he states that he functions well and feels that he does not currently need pain management. I am concerned that the magnitude of his opiate tolerance may not be satisfied by Suboxone. He will likely need a high dose. But this is certainly worth a try. Should this fail, a methadone clinic might be his only option. And he might be declined admission since he does not strictly have OUD. Due to federal funding, they cannot prescribe methadone off label. He has an appointment with Dr. Lema in 2 days and will discuss this with him. I asked him to have Dr. Lema call me so that we can coordinate care. The most convenient option would be for him to discontinue methadone for 1 week before Suboxone induction. He could increase the dose of Vicodin to replace the methadone, then discontinue it 36 hours before induction so he would not need to struggle with opiate withdrawal as long as he would if he was still on methadone (3 days). I can provide him with a few days of clonidine to ease the expected anxiety. Once I have spoken with Dr. Lema, I will call Pau Terrance to arrange a day for induction. I explained to him the risk of induced withdrawal at length. He was unable, or unwilling to provide a urine for drug testing today which concerns me. Of note is that the prescription monitoring program reveals that he has been filling prescriptions for methylphenidate from Dr. Meek, last one was Jul 26. Though he admits to filling the prescription, he denies taking any. I did not press him as to why he did not disclose this medication, and why he filled it. I discussed and provided him with a treatment agreement to take home and review, bring back signed to his Suboxone induction appointment when scheduled. 08/23/2024 Other 50' F2F [facility] er for discussion, education, care plan, record and PULMONARY FUNCTION TECHNOLOGIST review PLAN OF TREATMENT Treatment Notes Assessment Notes Chronic pain syndrome He has been treated for pain since he was a teen. He started getting care for daily migraines and was referred to a pain clinic. He was treated with oxygen, then tylox. He has been on methadone for 20 years - 1 tab 5 separate doses. + Vicodin 2 separate doses/day. He has chronic pain, but is able to function well with present pain management. He is now looking for Suboxone since he has not been able to find an opiate prescriber to replace his retiring PCP. He understands that if he stops taking his prescribed opiates, that he will go through a prolonged opiate withdrawal. He did that many years ago and found it very unpleasant. He is certainly correct about that. But there are several issues: Suboxone is approved for maintenance treatment of opiate use disorder. His OUD diagnosis is tenuous. He admits to taking illicit Syrian opiates > 20 years ago and using cocaine > 40 years ago. Other than that, he has only taken medications as prescribed. Of the 11 DSM-5 criteria for the diagnosis of opiate use disorder, he satisfies only the tolerance and withdrawal criteria. And, according to DSM-5, those do not count if they are a result of prescribed opiates taken as directed. Without satisfying at least 2 criteria, he does not qualify for diagnosis of opiate use disorder. Any treatment with Suboxone will be off label. But that can still be done if clinically indicated. He understands that Suboxone does not treat pain well. But he states that he functions well and feels that he does not currently need pain management. I am concerned that the magnitude of his opiate tolerance may not be satisfied by Suboxone. He will likely need a high dose. But this is certainly worth a try. Should this fail, a methadone clinic might be his only option. And he might be declined admission since he does not strictly have OUD. Due to federal funding, they cannot prescribe methadone off label. He has an appointment with Dr. Lema in 2 days and will discuss this with him. I asked him to have Dr. Lema call me so that we can coordinate care. The most convenient option would be for him to discontinue methadone for 1 week before Suboxone induction. He could increase the dose of Vicodin to replace the methadone, then discontinue it 36 hours before induction so he would not need to struggle with opiate withdrawal as long as he would if he was still on methadone (3 days). I can provide him with a few days of clonidine to ease the expected anxiety. Once I have spoken with Dr. Lema, I will call Mr. Allison to arrange a day for induction. I explained to him the risk of induced withdrawal at length. He was unable, or unwilling to provide a urine for drug testing today which concerns me. Of note is that the prescription monitoring program reveals that he has been filling prescriptions for methylphenidate from Dr. Meek, last one was Jul 26. Though he admits to filling the prescription, he denies taking any. I did not press him as to why he did not disclose this medication, and why he filled it. I discussed and provided him with a treatment agreement to take home and review, bring back signed to his Suboxone induction appointment when scheduled. Other 50' F2F encounter fo r discussion, education, care plan, record and PULMONARY FUNCTION TECHNOLOGIST review
--- OUTSIDE RECORDS SUMMARY | 2024-11-16 03:04 | XMS_ITS ---
Author Organization [facility] Address [address] [place], [place] [id number] Care Team Providers Care Freelance Web Designer Name Role Phone MIRNA HIGGINS Primary Care Provider [phone] Encounters Encounter Location Date Provider Diagnosis [facility] [address] [place] [address] 11/16/2024 MIRNA HIGGINS PLAN OF TREATMENT No Information
--- OUTSIDE RECORDS SUMMARY | 2024-11-16 03:11 | XMS_ITS ---
Author Organization [facility] Address [address], [place] [phone] Care Team Providers Care Ux Developer Name Role Phone MIRNA HIGGINS Primary Care Provider [phone] LUCRETIA WOLFE [phone] REASON FOR VISIT appt to discuss suboxone Encounters Encounter Location Date Provider Diagnosis [facility] [address] [place] [address] 11/16/2024 LUCRETIA WOLFE PLAN OF TREATMENT No Information
--- OUTSIDE RECORDS SUMMARY | 2024-11-16 11:15 | XMS_ITS ---
Author Organization [facility] Address [address] [place], [place] [id number] Care Team Providers Care Coding Support Specialist Name Role Phone MIRNA HIGGINS Primary Care Provider [phone] LUCRETIA WOLFE Unavailable [phone] ALLERGIES No Known Allergies REASON FOR VISIT [facility], pt unable to give a urine MEDICATIONS Medication SIG (Take, Route, Frequency, Duration) Notes Start Date End Date Status diazePAM 10 MG 1 tablet as needed Orally Three times a day Active Rosuvastatin Calcium 40 MG 1 tablet Orally Once a day Active Naproxen 500 MG 1 tablet with food or milk as needed Orally every 12 hrs Active Buprenorphine HCl-Naloxone HCl 8-2 MG 1-2 film under the tongue and allow to dissolve Sublingual Once a day for 4 days This will be replacing methadone and hydrocodone beginning November 24. Do not fill before November 23. 11/16/2024 Active Tamsulosin HCl 0.4 MG 1 Orally Twice a day Active cloNIDine HCl 0.1 MG 1-2 tablet Orally q6h prn for 2 days 11/16/2024 Active Methadone HCl 10 MG 5 tablet Orally Once a day 11/14/2024 Active SOCIAL HISTORY Tobacco Use: Social History Observation Description Date Details (start date - stop date) Never Smoker NA - NA Sex Assigned At : Social History Observation Description Sex Assigned At Unknown Smoking Question Answer Notes Are you a: never smoker Section Notes: never smoked cigarettes VITAL SIGNS Height 73.25 in 11/16/2024 Weight 282.6 lbs 11/16/2024 Blood pressure systolic 138 mm Hg 11/17/19 25 Blood pressure diastolic 80 mm Hg 025 BMI 37.03 kg/m2 11/16/2024 Encounters Encounter Location Date Provider Diagnosis [facility] [address] [place] [address] 11/16/2024 LUCRETIA WOLFE Chronic pain syndrome G89.4 ASSESSMENTS Encounter Date Diagnosis Assessment Notes Treatment Notes Treatment Clinical Notes Section Notes 11/16/2024 Chronic pain syndrome (ICD-10 - G89.4) He called today for an appointment and was put in same day, at his insistence. He is looking to transition from long-term pain management with methadone to buprenorphine via OBOT. In preparation for that, he discontinued methadone 1 to 2 days ago. He did this all without instructions or any medical direction. He thought he can transition to buprenorphine. However, at his previous appointment, several months ago, I had explained to him that he would need 3 days off methadone. Our plan was for him to switch to hydrocodone. Since that is shorter acting he would be able to transition to methadone after 36 hours off hydrocodone. He was quite confused, asking the same questions over and over, so I handwrote all instructions and explanations for him. His PCP, Dr. Osullivan, will be retiring next month and he will be no longer able to continue on pain management with methadone. 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 His methadone has been cut from 50 mg daily to 30 mg for the last month. It is not completely clear to me what he is taking, but that was his prescription. He continues on diazepam, 30 mg/day but is no longer getting any prescriptions for amphetamines. Plan is an induction on buprenorphine from Vicodin/hydrocodo ne. He will have clonidine to help with withdrawal symptoms for the 36 hours prior to initial buprenorphine dose. He will bring his medications to his office visit where I will provide all instructions personally and we will proceed with induction. UDS is positive for methadone, THC, benzodiazepin es. It is negative for the remainder of the 12 test panel. PLAN OF TREATMENT Medication Medication Name Sig Start Date Stop Date Notes Buprenorphine HCl-Naloxone HCl 8-2 MG 1-2 film under the tongue and allow to dissolve Sublingual Once a day for 4 days 11/16/2024 This will be replacing methadone and hydrocodone beginning November 24. Do not fill before November 23. cloNIDine HCl 0.1 MG 1-2 tablet Orally q6h prn for 2 days 11/16/2024 Treatment Notes Assessment Notes Chronic pain syndrome He called today for an appointment and was put in same day, at his insistence. He is looking to transition from long-term pain management with methadone to buprenorphine via OBOT. In preparation for that, he discontinued methadone 1 to 2 days ago. He did this all without instructions or any medical direction. He thought he can transition to buprenorphine. However, at his previous appointment, several months ago, I had explained to him that he would need 3 days off methadone. Our plan was for him to switch to hydrocodone. Since that is shorter acting he would be able to transition to methadone after 36 hours off hydrocodone. He was quite confused, asking the same questions over and over, so I handwrote all instructions and explanations for him. His PCP, Dr. Osullivan, will be retiring next month and he will be no longer able to continue on pain management with methadone. 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 His methadone has been cut from 50 mg daily to 30 mg for the last month. It is not completely clear to me what he is taking, but that was his prescription. He continues on diazepam, 30 mg/day but is no longer getting any prescriptions for amphetamines. Plan is an induction on buprenorphine from Vicodin/hydrocodone. He will have clonidine to help with withdrawal symptoms for the 36 hours prior to initial buprenorphine dose. He will bring his medications to his office visit where I will provide all instructions personally and we will proceed with induction. Next Appt Details Follow Up: next week 15 min, Wednesday?, Reason: History and Physical Notes * Physical Examination Category Sub-Category Detail Notes Section Note s GENERAL General Appearance: Anxious appe aring, tremulous, ambulates w/o assistance He is very scattered. Asking the same question multiple times despite having instructions written in front of him.
--- OUTSIDE RECORDS SUMMARY | 2024-11-20 03:30 | XMS_ITS ---
Author Organization [facility] Address [address] [place], [place] [id number] Care Team Providers Care Pattern Technician Name Role Phone MIRNA HIGGINS Primary Care Provider [phone] LUCRETIA WOLFE [phone] REASON FOR VISIT canceled appt Encounters Encounter Location Date Provider Diagnosis [facility] [address] [place] [address] 11/20/2024 LUCRETIA WOLFE PLAN OF TREATMENT No Information
--- OUTSIDE RECORDS SUMMARY | 2024-11-24 10:45 | XMS_ITS ---
Author Organization [facility] Address [address], [place] [id number] Care Team Providers Care Database Technician Name Role Phone MIRNA HIGGINS Primary Care Provider LUCRETIA WOLFE [phone] REASON FOR VISIT 40 SFU 1 wk f/u Encounters Encounter Location Date Provider Diagnosis [facility] [address] [place] [address] 11/24/2024 LUCRETIA WOLFE PLAN OF TREATMENT No Information
--- NOTE | 2025-05-29 15:19 | A.OFFPC_ITS ---
Vital Signs 05/29/25 15:20 Height 6 ft 3.2 in Weight 269 lb BMI 33.4 BP 153/70 H Blood Pressure Location Rt brachial Position Sitting Respiration 16 Pulse 96 Pulse Source Pulse Oximeter Temp 97.6 F Temp Source Temporal Artery Scan Pulse Oximetry (%) 97 Oxygen Delivery Method Room Air Intake Visit Reasons: 3 month follow up - see comments Business Affairs Manager Required: No Accompanied by: Self / Same As Patient Allergies No Known Allergies Allergy (Verified 05/29/25 15:20) Tobacco use date assessed: 02/27/25 Dental Screening Dental Screen Date: 02/27/25 HPI HPI Comments History of Present Illness Details History of Present Illness - The patient is a 65 year old individua l presenting for evaluation of an itchy scalp and chronic condition management. - The patient reports experiencing an it adalid scalp with hives and welts for approximately one week, which has not responded to zleb-cbc-kpfrisk shampoo. - The symptoms began prior to the oxana chau's last hair dyeing session and have been severe enough to disrupt daily life, requiring the application of ice for relief. - The patient also notes a runny nose si nce the fall began. - The patient reports worsening chronic lower back pain. - For chronic pain management, the hardeep hawley has been taking methadone for 25 years and currently self-manages with a surplus of pills, taking two a day with an estimated one-year supply remaining. - The patient is followed by Dr. Hoffmann for pain and has an upcoming appointment in June. - The patient has a history of panic att acks since age 16 and requests a prescription for diazepam. - The patient last took it regularly two months ago and has been taking 5 mg daily for the past five or six days, provided by the patient's father. - The patient reports significant diffic ulty leaving the house for the past 4-5 years. - Medications include rosuvastatin and t amsulosin. - The patient recently used Benadryl, wh ich was associated with increased difficulty urinating. Social History - Functional Status: The patient reports being mostly housebound for the last four to five years, stating it is difficult to leave the house. - Activities: The patient reports leavin g the house only for doctor appointments and haircuts. 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 - Substance Use: The patient reports usi ng a self-managed supply of methadone for chronic pain and has recently been taking diazepam 5 mg daily provided by the patient's father. Results [facility] Medical History Opioid use disorder Family History Father Leukemia Mother Smoker Social History Housing: House Alcohol intake: current Alcohol intake frequency: does not drink Patient Tobacco Use Status: Never used Tobacco service: No Current occupational status: retired Cognitive needs: No Hearing needs: No Vision needs: Yes (reading glasses) Questionnaire PHQ-9 Over the last 2 weeks, how often have you been bothered by any of the following problems? 1. Little interest or pleasure in doing things: not at all 2. Feeling down, depressed, or hopeless: not at all 3. Trouble falling or staying asleep, or sleeping too much: not at all 4. Feeling tired or having little energy: not at all 5. Poor appetite or overeating: not at all 6. Feeling bad about yourself - or that you are a failure or have let yourself or your family down: not at all 7. Trouble concentrating on things, such as reading the newspaper or watching television: not at all 8. Moving or speaking so slowly that other people could have noticed. Or the opposite - being so fidgety or restless that you have been moving around a lot more than usual: not at all 9. Thoughts that you would be better off or of hurting yourself in some way: not at all Total score: 0 Source: Developed by Drs. Palomo Alba, Francesca Guthrie, Raul Narayan and colleagues, with an educational parisa from [employer]. Thrive Questionnaire Date Thrive assessed: 02/27/25 I am a: Patient What is your living situation today?: I have a steady place to live Within the past 12 months, did the food you bought not last and you didn't have the money to get more?: Never true Within the past 12 months, did you worry whether your food would run out before you got money to buy more?: Never true Do you have trouble paying for medicines?: No Do you have trouble getting transportation to medical appointments?: No Do you have trouble paying your heating and electricity bill?: No Do you have trouble taking care of your child, family member or friend?: No Do you have trouble with day-to-day activities such as bathing, preparing meals, shopping, managing finances, etc.?: No Are you currently unemployed and looking for a job?: No Are you interested in more education?: No Please select the resources that you would like help with: None THRIVE Score: 0 AUDIT C Alcohol Use Questionnaire (AUDIT-C) 1. How often do you have a drink containing alcohol?: Never 3. How often do you have six or more drinks on one occasion?: Never Total Score: 0 BELA-7 AMB Questionnaire BELA-7 Date BELA - 7 assessed: 02/27/25 Feeling nervous, anxious, or on edge: 0 = Not at all Not being able to stop or control worryin = Not at all Worrying too much about different things: 0 = Not at all Trouble relaxin = Not at all Being so restless that it is hard to sit still: 0 = Not at all Becoming easily annoyed or irritable: 0 = Not at all Feeling afraid as if something awful might happen: 0 = Not at all Total BELA-7 score (0-4 normal; 5-9 mild; 10-14 moderate; 15-21 severe): 0 Source: Developed by Drs. Palomo Alba, Francesca Guthrie, Raul Narayan and colleagues, with an educational parisa from [employer]. Review of Systems Narrative Review of Systems - Dermatologic: Reports an itchy scalp with hives and welts for one week. - Reports a separate episode of pruritus on the arm without a visible rash. - HEENT: Reports rhinorrhea since the start of fall. - Musculoskeletal: Reports worsening lower back pain. - Genitourinary: Reports increased difficulty with urination. - Psychiatric: Reports a history of panic attacks since age 16 and anxiety. - Reports difficulty leaving the house. Physical exam (Primary Care) Vital Signs: Last Vital Signs Temp 97.6 F 05/29/25 15:20 Pulse 96 05/29/25 15:20 Resp 16 05/29/25 15:20 BP 153/70 H 05/29/25 15:20 Pulse Ox 97 05/29/25 15:20 Oxygen Delivery Method Room Air 05/29/25 15:20 BMI result Body Mass Index 33.4 Tobacco/Smoking Status: Tobacco use Status Tobacco use date assessed 02/27/25 05/29/25 15:21 Patient Tobacco Use Status Never used Tobacco 05/29/25 15:21 PHQ-9: PHQ-9 Score PHQ-9: Total score 0 05/29/25 15:27 Thrive Assessment: Date of Thrive Assessment Date Thrive assessed 02/27/25 05/29/25 15:21 Narrative Physical Exam General: Appearance normal, both eyes and all related structures Nutritional Appearance: Well nourished Orientation/consciousness: Patient oriented x3 Limitations: Difficulty getting out of the house Head: Presence of hives and itching on the scalp Neck: Normal visual inspection Chest: Normal palpation of entire chest wall Respiratory: Normal respiratory effort Neurology: Patient oriented x3 Coding Level of Care Code Complex visit Add On G2211 Diagnoses Opioid use disorder F11.90 Assessment & Plan Assessment & Plan (1) Opioid use disorder: Comment: He is good candidate for Suboxone Code(s): F11.90 - Opioid use, unspecified, uncomplicated Category: Medical Plan Plan - Prescribed prednisone for three days to treat a suspected allergic reaction causing the scalp pruritus. - Prescribed diazepam 5 mg to be taken once daily for anxiety. - The patient was advised to discontinue Benadryl due to its association with urinary difficulty. - Ordered blood work to assess kidney function, liver function, thyroid function, and prostate-specific antigen (PSA). - The patient will continue taking rosuvastatin and tamsulosin. - The patient will continue self-managing chronic pain with their existing supply of methadone. Discussion Notes I discussed with the patient that the scalp examination did not reveal signs of folliculitis or infection. Due to the nature of the symptoms, I explained that a possible allergic reaction is suspected, and I prescribed a three-day course of prednisone to address it. We discussed the patient's request for anxiety medication, and I agreed to prescribe diazepam 5 mg daily. I advised the patient to discontinue Benadryl, explaining its potential to worsen urinary symptoms, particularly with an enlarged prostate. I also recommended lab work, including kidney, liver, thyroid, and prostate tests, which the patient can have done at their convenience. Patient Instructions - Take the prednisone medication as prescribed for the next three days for your itchy scalp. - Stop taking Benadryl, as it may be making it harder for you to urinate. - Take one diazepam 5 mg tablet by mouth each day for anxiety. - Please go to the lab on [address] to have your blood drawn when you can. - Continue taking your other medications, rosuvastatin and tamsulosin, as usual. Orders: Orders Basic Metabolic Panel Today F11.90 - Opioid use, unspecified, uncomplicated Liver Panel Today F1.90 - Opioid use, unspecified, uncomplicated Lipid Panel Today F11.90 - Opioid use, unspecified, uncomplicated Thyroid Stimulating Hormone Today F11.90 - Opioid use, unspecified, uncomplicated Complete Blood Count no Diff Today F11.90 - Opioid use, unspecified, uncomplicated Prostate Specific Antigen Scr Today F11.90 - Opioid use, unspecified, uncomplicated Medications: New diazepam (Valium) 5 mg PO BEDTIME PRN 30 tabs 0RF sleep prednisone 60 mg (3 x 20 mg) PO DAILY 9 tabs 0RF
[2025-05-29 15:20] VITALS: BP 153/70; PULSE 96; RESP 16; TEMP 36.4; O2SAT 97; BMI 33.4
--- OUTSIDE RECORDS SUMMARY | 2025-05-29 18:51 | XMS_ITS | Patient Health Record ---
Author Organization [facility] Address [address], [place] [id number] Care Team Providers Care Grain Unloader Name Role Phone MIRNA HIGGINS Primary Care Provider LUCRETIA WOLFE Unavailable [phone] ALLERGIES No Known Allergies REASON FOR REFERRAL [...] Problem Chronic pain syndrome (G89.4) Active confirmed 419771092 Problem BMI 36.0-36.9,adult (Z68.36) Active confirmed 324545553 Problem High cholesterol (E78.00) Active confirmed 48647946 Problem BPH without urinary obstruction (N40.0) Active confirmed 393456024 Problem Migraine syndrome (G43.909) Active confirmed 26123830 VITAL SIGNS Blood pressure diastolic 80 mm Hg 11/16/2024 Height 73.25 in 11/16/2024 Blood pressure systolic 138 mm Hg 11/16/2024 Weight 282.6 lbs 11/16/2024 BMI 37.03 kg/m2 11/16/2024 Encounters Encounter Location Date Provider Diagnosis [address] [address] 06/12/2024 MIRNA HIGGINS [address] [address] 08/22/2024 MIRNA HIGGINS Elevated PSA R97.20 ; BPH without urinary obstruction N40.0 ; Chronic pain syndrome G89.4 ; Chronic depression F32.A ; BMI 36.0-36.9,adult Z68.36 ; High cholesterol E78.00 and Migraine syndrome G43.[address] [address] 08/22/2024 MIRNA HIGGINS [place] [phone] 08/23/2024 LUCRETIA WOLFE Chronic pain syndrom e G89.[address] [address] 11/16/2024 MIRNA HIGGINS [place] [phone] 11/16/2024 LUCRETIA WOLFE [place] [phone] 11/16/2024 LUCRETIA WOLFE Chronic pain syndrom e G89.[address] [address] 11/20/2024 LUCRETIA WOLFE [address] [address] 11/24/2024 LUCRETIA WOLFE ASSESSMENTS Encounter Date Diagnosis [...] is tenuous. He admits to taking illicit [place] opiates > 20 years ago and using [...] to continue on pain management with methadone. 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 His methadone has been [...] pt aware that I do not prescribe rn long term care pain med/benzodiazepines -pt will see Dr Wolfe [...] for discussion, education, care plan, record and [facility] G[facility] review PLAN OF TREATMENT No Information Insurance Providers Payer Name Payer Address Payer Phone Subscriber Number Group Number Insured Name Patient Relationship to Insured Coverage Start Date Coverage End Date MEDICARE [email or web address] [address] [place] [address] [phone] [id number] PRIYANKA ALLISON Self - patient is the insured [facility] [address] [place] [address] [phone] [id number] PRIYANKA ALLISON Self - patient is the insured MEDICAL (GENERAL) HISTORY Medical History History ICD Code osteoarthritis high cholesterol depression headaches/migraines chronic lower back pain-spinal stenosis/ DDD agoraphobia BPH elevated psa Surgical History Surgery Date(Month/Year) prostate bx
== END 2025-05-29 15:47 | disposition home or self-care (01) ==
LOC: HO.HMCSH 15:10
PROVIDERS: PCP Internal Medicine; Visit Provider Internal Medicine
DX: F11.90 Opioid use, unspecified, uncomplicated (principal); L29.9 Pruritus, unspecified

== ENCOUNTER → 2025-05-29 15:10 | Outpatient (BNVA) | payer MEDICARE, SELFPAY | PROVIDERS: PCP Internal Medicine; Visit Provider Internal Medicine | DX: F11.90 Opioid use, unspecified, uncomplicated (principal) | CPT/HCPCS: 99212 ==